=== PATIENT | female | born 1995 | race Two or more races ===

== ENCOUNTER 2019-09-07 01:49 | Emergency (ER) | payer BC ==
--- NOTE | 2019-09-07 01:53 | PDOC ---
History of Present Illness - General Chief Complaint: Pain, Acute Stated Complaint: CHEST PAIN Time Seen by Provider: 09/07/19 01:51 History Source: Patient Exam Limitations: No Limitations - History of Present Illness Initial Comments: 09/07/19 01:52 HPI 24 YOF with PMH kidney stones and ruptured ovarian cyst presenting with left sided chest pain x 1 hour [employer]. she was lying in bed and texting when she developed localized left sided chest pain, nonexertional. no exacerbating or alleviating factors. no trauma or heavy lifting. no cough/congestion or respiratory illness. while in the car ride, she had generalized headache and felt her "bowels moving" and more "gassy." she admits to eating a heavy dinner with chicken and asparagus tonight. currently on her menses. took ibuprofen [employer], with some relief of her sx. currently 11/26. Denies fever, chills, SOB, palpitation, dizziness, weakness, N, V, D, abdominal pain, bladder and bowel problems, focal weakness/paresthesias, leg swelling/pain, rash. No sick contacts or travel. No new changes in medications. No suspicious food intake, no OCP use no immobilization or long car rides. Allergies: None Past Medical History/PSH: as above Social history: Lives with family. No tobacco, ETOH or drug use. no vaping or cannibis or illicit drug use. Meds: as documented in EMR Family history: no family history of early [place]/sudden deaths or PE/DVT. Review of systems Constitutional: no fevers or chills. No weakness HEENT: +headache, no dizziness. No congestion. No visual/hearing disturbances. CVS: no syncope. +chest pain Resp: no sob. No cough. Gastrointestinal: no abdominal pain, nausea, vomiting, diarrhea. Genitourinary: no urinary sx, hematuria. MUSCULOSKELETAL: No joint pain and swelling. No neck or back pain. SKIN: no redness or skin changes, no discharge, no rash. No wounds. Hematologic: no easy bruising/bleeding. no history of anemia or blood clots NEUROLOGIC: No headache, dizziness, LOC or altered mental status. No weakness, numbness or tingling. Psych: no anxiety or depression Allergic/Immunologic: no allergies All other systems reviewed and negative, or as documented in HPI. Physical exam General: Well appearing, awake and alert, NAD. HEENT: NCAT, PERRL, EOMI, clear conjunctiva, anicteric, moist mucus membranes, clear oropharynx, no oral lesions.. Neck: neck supple, FROM Resp: CTAB, normal and even respirations, no respiratory distress CVS: RRR, no murmurs, 2+ peripheral pulses throughout, no peripheral edema Abdomen: soft, NTND, no rebound or guarding. Back: nontender, normal inspection and ROM MSK: no edema, KAMARA x4, ROM intact. No clubbing or cyanosis. normal bulk and tone. Extremities: no calf tenderness Neuro: alert, oriented appropriately; no focal neurologic deficits Psych: Calm and cooperative Skin: warm and well perfused, cap refill <2 sec, normal color, no rash or skin discoloration. 09/07/19 02:04 09/07/19 02:16 09/07/19 02:16 Past History - Past Medical History Allergies/Adverse Reactions: Allergies Allergy/AdvReac Type Severity Reaction Status Date / Time No Known Allergies Allergy Verified 09/07/19 01:51 Home Medications: Ambulatory Orders NK [No Known Home Medication] 09/07/19 Kidney Stones: Yes - Immunization History Immunization Up to Date: Yes - Psycho Social/Smoking Cessation Hx Smoking Status: No Smoking History: Never smoked Number of Cigarettes Smoked Daily: 0 Hx Alcohol Use: No Drug/Substance Use Hx: No *Physical Exam - Vital Signs Last Vital Signs Temp Pulse Resp BP Pulse Ox 97.7 F 78 16 124/83 100 09/07/19 01:52 09/07/19 01:52 09/07/19 01:52 09/07/19 01:52 09/07/19 01:52 Heart Score/ECG Review #1 ECG reviewed & interpreted by me at: 02:15 General ECG Interpretation: Sinus Rhythm, Normal Rate, Normal Intervals, No acute ischemic changes Compared to previous ECG there are: Previous ECG unavail 09/07/19 02:11 EKG normal sinus rhythm at 76 bpm, no interval abnormalities, narrow QRS, ST and T wave segments and morphology normal. Medical Decision Making - Medical Decision Making 09/07/19 02:09 Vital Signs Temp Pulse Resp BP Pulse Ox 97.7 F 78 16 124/83 100 09/07/19 01:52 09/07/19 01:52 09/07/19 01:52 09/07/19 01:52 09/07/19 01:52 ddx. chest pain, arrhythmia, interval derangements, PE, dissection, PUD, esophageal spasm, GERD, gastritis, costochondritis, pneumonia, pleurisy, pericarditis/myocarditis. dehydration, electrolyte/metabolic derangements. Considered but clinically doubt based on HPI and PE: Low suspicion for pulmonary embolism or dissection. PERC negative, low suspicion for PE so defer testing or dimer no infectious sx to suggest pulmonary edema/infiltrate or pna, or PTX, lungs are clear, normal sats and breathing comfortably No evidence of ACS, pericarditis, myocarditis, pulmonary embolism, pneumothorax , pneumonia, Zoster, or esophageal perforation. Historically not abrupt in onset , tearing or ripping, pulses symmetric, no evidence of aortic dissection. EKG normal sinus rhythm at 76 bpm, no interval abnormalities, narrow QRS, ST and T wave segments and morphology normal. no e/o WPW or interval derangements, no channelopathies, no st segment derangements. no e/o brugada. no troponin testing or imaging or labs/workup exam unremarkable. no abdominal tenderness elicited. neuro intact. symptoms improving after analgesia [employer]. no vaping/sniffing or inhalation to suggest injury to lungs Pt to be discharged in stable condition. Patient and family made aware of clinical impression, treatment recommendations and disposition plan, return precautions discussed (including but not limited to new or persistent/worsening symptoms, pain, fevers, or signs of infection, chest pain, respiratory distress , inability to tolerate oral intake, dehydration, syncope, or neurologic changes ). Follow up with PMD and/or specialist as recommended - referrals for PMD and cardiology given, follow up information provided, take medications as instructed for duration of time. continue with supportive care, avoid triggers and precipitants. All questions answered to patient's satisfaction and expressed understanding and comfort with this. At the time of discharge, the patient is alert, clinically improved, tolerating po and verbalizes understanding of instructions, satisfied with the care received and felt comfortable with the plan. Patient does not suffer from an acute life- threatening medical condition at this time and is safe for outpatient follow- up. 09/07/19 02:12 09/07/19 02:16 09/07/19 02:17 Discharge - Discharge Information Problems reviewed: Yes Clinical Impression/Diagnosis: Chest pain Qualifiers: Chest pain type: unspecified Qualified Code(s): R07.9 - Chest pain, unspecified Condition: Stable Disposition: HOME - Admission No - Follow up/Referral Referrals: [facility] [place] [facility] [place] [Provider Group] [facility] [Provider Group] Asad Zurita MD [Staff Physician] - Cher Piedra MD [Staff Physician] - - Patient Discharge Instructions Patient Printed Discharge Instructions: DI for Chest Pain Additional Instructions: 1) Please follow-up with your primary care doctor in the next 1-2 days. Please call tomorrow for for any urgent issues. referrals given, for primary care and pearl glue drier 2) Your EKG was normal here. 3) If you have any worsening of symptoms or any other concerns please return to the ED immediately. Return if worsening symptoms including fevers, headache, vomiting, visual or hearing disturbances, abdominal pain, chest pain, shortness of breath, syncope, dehydration, inability to take things by mouth/vomiting, altered mental status, or worsening concerning symptoms. rest adequately, pain medications over the counter as needed. - Post Discharge Activity
[2019-09-07 01:54] VITALS: BP 124/83; PULSE 78; TEMP 97.7; BMI 22.1
--- NOTE | 2019-09-07 10:05 | EKG ---
Test Reason : Blood Pressure : / mmHG Vent. Rate : 076 BPM Atrial Rate : 076 BPM P-R Int : 128 ms QRS Dur : 090 ms QT Int : 396 ms P-R-T Axes : 000 062 054 degrees QTc Int : 445 ms NORMAL SINUS RHYTHM WITH SINUS ARRHYTHMIA NORMAL ECG NO PREVIOUS ECGS AVAILABLE Confirmed by NORM CARY MD ([id number]) on 09/07/2019 10:05:40 AM Referred By: LIA GUILLEN Confirmed By:NORM CARY MD
== END 2019-09-07 02:18 | disposition home or self-care (01) ==
LOC: FER 01:49
DX: R07.9 Chest pain, unspecified (principal); N20.0 Calculus of kidney
CPT/HCPCS: 93005; 99281-25